=== PATIENT | male | born 1955 | race Asian ===

== ENCOUNTER 2017-03-03 21:59 | Emergency (ER) | payer MEDICAID ==
[~2017-03-03] VITALS: Ht 180.3 cm; Wt 102.1 kg
[2017-03-03 22:07] VITALS: BP_SYST 129
--- NOTE | 2017-03-03 22:12 | NUR ---
Patient to ER bed 8 to gown for evaluation. Side rails up. Report given to ALIVIA BISHOP.
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
--- NOTE | 2017-03-03 22:28 | NUR ---
ER at bedside examining patient.
[2017-03-03] MEDS ORDERED: IBUPROFEN 800 MG TABLET PO ONE (22:30)
[2017-03-03] MEDS ORDERED: SULFAMETHOXAZOLE/TRIMETHOPR DS 1 TABLET PO ONE (22:30)
--- NOTE | 2017-03-03 22:56 | NUR ---
Patient given written and verbal discharge instructions and verbalizes understanding. ER MD discussed with patient the results and treatment provided. Patient in stable condition. ID arm band removed. Rx of BACTRIM, MOTRIN given. Patient educated on pain management and to follow up with PMD. Pain Scale 0/10. Opportunity for questions provided and answered.
[2017-03-03 22:58] VITALS: BP_SYST 129
== END 2017-03-03 22:58 | disposition home or self-care (01) ==
LOC: SED 21:59
DX: S60.862A Insect bite (nonvenomous) of left wrist, initial encounter (principal); L03.114 Cellulitis of left upper limb; E11.9 Type 2 diabetes mellitus without complications; I10 Essential (primary) hypertension; W57.XXXA Bitten or stung by nonvenomous insect and other nonvenomous arthropods, initial encounter; Y93.89 Activity, other specified; Y92.89 Other specified places as the place of occurrence of the external cause; Y99.8 Other external cause status
CPT/HCPCS: 99283

== ENCOUNTER 2017-06-01 18:44 | Emergency (ER) | payer MEDICAID ==
[~2017-06-01] VITALS: Ht 180.3 cm; Wt 99.8 kg
[~2017-06-01 18:44] MED LIST: GLYB1TAB3 PO; SIMV20TA6 PO
[2017-06-01 18:46] VITALS: BP_SYST 140
--- NOTE | 2017-06-01 19:02 | NUR ---
Patient to ER bed 7 to gown for evaluation. Side rails up. Report given to Liya BUNCH.
--- NOTE | 2017-06-01 19:02 | NUR ---
ER MD Gordillo at bedside evaluating the patient
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
--- NOTE | 2017-06-01 19:30 | NUR ---
Umbrella Mender at bedside for blood draw. Patient identified x2
--- NOTE | 2017-06-01 19:51 | NUR ---
ER MD Russo at bedside evaluating the patient
[2017-06-01 19:59] LABS: BASOPHILS # (AUTO) 0.1 K/uL (0.0-0.2); BASOPHILS % (AUTO) 0.7 % (0.0-2.0); EOSINOPHILS # (AUTO) 0.5 K/uL (0.0-0.4); EOSINOPHILS % (AUTO) 5.5 % (0.0-4.0); HEMATOCRIT 41.5 % (36-54); HEMOGLOBIN 13.9 g/dL (14.0-18.0); LYMPHOCYTES # (AUTO) 2.3 K/uL (1.0-5.5); LYMPHOCYTES % (AUTO) 23.7 % (20.5-51.5); MEAN CORPUSCULAR HEMOGLOBIN 29 pg (27-31); MEAN CORPUSCULAR HGB CONC 34 % (32-36); MEAN CORPUSCULAR VOLUME 85 fL (79.0-98.0); MONOCYTES # (AUTO) 0.7 K/uL (0.0-1.0); MONOCYTES % (AUTO) 6.9 % (1.7-9.3); NEUTROPHILS % (AUTO) 63.2 % (40.0-70.0); PLATELET COUNT (AUTO) 229 K/uL (130-430); RED BLOOD CELL COUNT(AUTO) 4.86 MIL/uL (4.2-6.2); RED CELL DISTRIBUTION WIDTH 12.4 % (9.0-15.0); WHITE BLOOD COUNT (AUTO) 9.6 K/uL (4.8-10.8)
[2017-06-01 20:04] LABS: PROTHROMBIN TIME 10.9 SECS (9.5-12.5)
[2017-06-01 20:05] LABS: BILIRUBIN,URINE NEGATIVE (NEGATIVE); BLOOD, URINE NEGATIVE (NEGATIVE); CLARITY/URINE CLEAR (CLEAR); COLOR,URINE YELLOW (YELLOW); GLUCOSE,URINE 3+ (NEGATIVE); KETONES,URINE TRACE (NEGATIVE); LEUKOCYTE ESTERASE ,URINE NEGATIVE (NEGATIVE); NITRITE, URINE NEGATIVE (NEGATIVE); PH,URINE 5.5 (5.0-8.0); PROTEIN URINE NEGATIVE (NEGATIVE); UROBILINOGEN,URINE 0.2 (0.2-1.0)
[2017-06-01 20:08] LABS: CALCIUM 8.4 mg/dL (8.4-11.0); CREATININE 1.03 mg/dL (0.55-1.30); POTASSIUM 4.1 mmol/L (3.5-5.1)
[2017-06-01 20:13] LABS: ALBUMIN 3.3 g/dL (3.4-4.8); TOTAL BILIRUBIN 0.9 mg/dL (0.0-1.0)
--- NOTE | 2017-06-01 21:14 | NUR ---
ER MD Russo at bedside discussing test results and discharge plan.
[2017-06-01 21:32] VITALS: BP_SYST 132
--- NOTE | 2017-06-01 21:32 | NUR ---
Patient given written and verbal discharge instructions and verbalizes understanding. ER MD Russo discussed with patient the results and treatment provided. Patient in stable condition. ID arm band removed. Rx of flexeril & tramadol given. Patient educated on pain management and to follow up with PMD. Pain Scale 0/10. Opportunity for questions provided and answered.
== END 2017-06-01 21:32 | disposition home or self-care (01) ==
LOC: SED 18:44
DX: S20.219A Contusion of unspecified front wall of thorax, initial encounter (principal); M94.0 Chondrocostal junction syndrome [Tietze]; E11.9 Type 2 diabetes mellitus without complications; I10 Essential (primary) hypertension; V49.9XXA Car occupant (driver) (passenger) injured in unspecified traffic accident, initial encounter; Y93.89 Activity, other specified; Y92.488 Other paved roadways as the place of occurrence of the external cause
CPT/HCPCS: 36415; 71010; 80053; 81003; 83880; 84484; 85025; 85610-TC; 93005; 99285

== ENCOUNTER 2018-01-03 10:21 | Emergency (ER) | payer MEDICAID ==
[~2018-01-03] VITALS: Ht 175.3 cm; Wt 99.8 kg
[2018-01-03 10:21] VITALS: BP_SYST 161
[2018-01-03 10:47] LABS: BASOPHILS % (AUTO) 0.6 % (0.0-2.0); EOSINOPHILS # (AUTO) 0.5 K/uL (0.0-0.4); EOSINOPHILS % (AUTO) 6.1 % (0.0-4.0); HEMATOCRIT 45.7 % (36-54); LYMPHOCYTES # (AUTO) 1.6 K/uL (1.0-5.5); LYMPHOCYTES % (AUTO) 20.9 % (20.5-51.5); MEAN CORPUSCULAR HEMOGLOBIN 28 pg (27-31); MEAN CORPUSCULAR HGB CONC 33 % (32-36); MEAN CORPUSCULAR VOLUME 85 fL (79.0-98.0); MONOCYTES # (AUTO) 0.4 K/uL (0.0-1.0); MONOCYTES % (AUTO) 5.7 % (1.7-9.3); NEUTROPHILS # (AUTO) 5.1 K/uL (1.8-7.7); NEUTROPHILS % (AUTO) 66.7 % (40.0-70.0); PLATELET COUNT (AUTO) 181 K/uL (130-430); RED BLOOD CELL COUNT(AUTO) 5.38 MIL/uL (4.2-6.2); RED CELL DISTRIBUTION WIDTH 12.4 % (9.0-15.0); WHITE BLOOD COUNT (AUTO) 7.6 K/uL (4.8-10.8)
[2018-01-03 10:59] LABS: CALCIUM 9.2 mg/dL (8.4-11.0); CREATININE 0.93 mg/dL (0.55-1.30)
[2018-01-03 11:04] LABS: ALBUMIN 3.7 g/dL (3.4-4.8); TOTAL BILIRUBIN 1.4 mg/dL (0.0-1.0)
[2018-01-03] MEDS ORDERED: KETOROLAC TROMETHAMINE 30 MG VIAL IVP ONE (12:00)
[2018-01-03 12:50] VITALS: BP_SYST 140
== END 2018-01-03 12:50 | disposition home or self-care (01) ==
LOC: SED 10:21
DX: M94.0 Chondrocostal junction syndrome [Tietze] (principal); I10 Essential (primary) hypertension; E11.9 Type 2 diabetes mellitus without complications
CPT/HCPCS: 36415; 71045; 80053; 83880; 84484; 85025; 85379; 93005; 96374; 99285; J1885

== ENCOUNTER 2018-08-10 20:48 | Emergency (ER) | payer MEDICAID ==
[~2018-08-10] VITALS: Ht 180.3 cm; Wt 108.9 kg
[2018-08-10 21:20] VITALS: BP_SYST 152
[2018-08-10] MEDS ORDERED: LIDOCAINE 1% 10 MG/ML, 20 ML MDV INJ ONE (22:45)
[2018-08-10] MEDS ORDERED: cefTRIAXone 1 GM VIAL IM ONE (22:45)
[2018-08-10 22:55] VITALS: BP_SYST 144
== END 2018-08-10 22:55 | disposition home or self-care (01) ==
LOC: SED 20:48
DX: H66.91 Otitis media, unspecified, right ear (principal); E11.9 Type 2 diabetes mellitus without complications; I10 Essential (primary) hypertension
CPT/HCPCS: 96372; 99283; J0696; J2001

== ENCOUNTER 2019-06-07 17:05 | Emergency (ER) | payer MEDICAID ==
[~2019-06-07] VITALS: Ht 180.3 cm; Wt 103.0 kg
[2019-06-07 17:21] VITALS: BP_SYST 159
--- NOTE | 2019-06-07 19:30 | NUR ---
Patient to ER bed 2 to gown for evaluation. Side rails up. Report given to Danya BUNCH.
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
--- NOTE | 2019-06-07 19:55 | NUR ---
ER at bedside examining patient.
[2019-06-07] MEDS ORDERED: KETOROLAC TROMETHAMINE 60 MG/2 ML VIAL IM ONE (20:15)
[2019-06-07 20:58] LABS: BASOPHILS # (AUTO) 0.1 K/uL (0.0-0.2); BASOPHILS % (AUTO) 0.7 % (0.0-2.0); EOSINOPHILS # (AUTO) 0.4 K/uL (0.0-0.4); EOSINOPHILS % (AUTO) 3.9 % (0.0-4.0); HEMOGLOBIN 16.5 g/dL (14.0-18.0); LYMPHOCYTES # (AUTO) 2.4 K/uL (1.0-5.5); LYMPHOCYTES % (AUTO) 22.2 % (20.5-51.5); MEAN CORPUSCULAR HEMOGLOBIN 30 pg (27-31); MEAN CORPUSCULAR HGB CONC 34 % (32-36); MEAN CORPUSCULAR VOLUME 88 fL (79.0-98.0); MONOCYTES # (AUTO) 0.8 K/uL (0.0-1.0); MONOCYTES % (AUTO) 7.4 % (1.7-9.3); NEUTROPHILS # (AUTO) 7.1 K/uL (1.8-7.7); NEUTROPHILS % (AUTO) 65.8 % (40.0-70.0); RED BLOOD CELL COUNT(AUTO) 5.47 MIL/uL (4.2-6.2); RED CELL DISTRIBUTION WIDTH 14.1 % (9.0-15.0); WHITE BLOOD COUNT (AUTO) 10.8 K/uL (4.8-10.8)
[2019-06-07 21:04] LABS: CALCIUM 9.1 mg/dL (8.4-11.0); CREATININE 0.9 mg/dL (0.55-1.30); POTASSIUM 4.4 mmol/L (3.5-5.1)
[2019-06-07 21:11] LABS: ALBUMIN 3.7 g/dL (3.4-4.8); TOTAL BILIRUBIN 1.3 mg/dL (0.0-1.0)
[2019-06-07 21:14] LABS: PLATELET COUNT (AUTO) 400 K/uL (130-430)
[2019-06-07 21:40] VITALS: BP_SYST 140
--- NOTE | 2019-06-07 21:40 | NUR ---
Patient given written and verbal discharge instructions and verbalizes understanding. ER MD discussed with patient the results and treatment provided. Patient in stable condition. ID arm band removed. Rx of Naprosyn, Flexeril given. Patient educated on pain management and to follow up with PMD. Pain Scale 0/10. Opportunity for questions provided and answered. Medication side effect fact sheet provided.
== END 2019-06-07 21:40 | disposition home or self-care (01) ==
LOC: SED 17:05
DX: S33.5XXA Sprain of ligaments of lumbar spine, initial encounter (principal); S43.402A Unspecified sprain of left shoulder joint, initial encounter; R07.89 Other chest pain; E11.9 Type 2 diabetes mellitus without complications; I10 Essential (primary) hypertension; Z79.899 Other long term (current) drug therapy; V43.52XA Car driver injured in collision with other type car in traffic accident, initial encounter; Y93.89 Activity, other specified; Y92.411 Interstate highway as the place of occurrence of the external cause; Y99.8 Other external cause status
CPT/HCPCS: 36415; 71045; 72100; 73030; 80053; 82550; 83880; 84484; 85025; 93005; 96372; 99284; J1885

== ENCOUNTER 2023-12-22 13:06 | Emergency (ER) | payer OTHER, MEDICAID ==
[~2023-12-22] VITALS: Ht 180.3 cm; Wt 90.7 kg
[~2023-12-22 13:06] MED LIST changes: +SIMV-43 PO; -SIMV20TA6 PO
[2023-12-22] MEDS: KETOROLAC TROMETHAMINE 60 MG/2 ML VIAL IM ONE (14:18)
[2023-12-22 14:19] VITALS: BP_SYST 138; PULSE 88; RESP 18; TEMP 98.2; O2SAT 96
[2023-12-22] MEDS ORDERED: IBUP-1971 PO (15:20)
[2023-12-22] MEDS ORDERED: HYDR-3917 PO (15:20)
[2023-12-22 15:34] VITALS: BP_SYST 122; PULSE 78; RESP 16; TEMP 98.2; O2SAT 96
[2023-12-25] MEDS ORDERED: IBUP-1971 PO (08:29)
[2023-12-25] MEDS ORDERED: HYDR-3917 PO (08:29)
== END 2023-12-22 15:32 | disposition home or self-care (01) ==
LOC: SED 13:06
DX: S63.502A Unspecified sprain of left wrist, initial encounter (principal); S43.402A Unspecified sprain of left shoulder joint, initial encounter; S33.5XXA Sprain of ligaments of lumbar spine, initial encounter; I10 Essential (primary) hypertension; E11.9 Type 2 diabetes mellitus without complications; W03.XXXA Other fall on same level due to collision with another person, initial encounter; Y93.89 Activity, other specified; Y92.89 Other specified places as the place of occurrence of the external cause; Y99.8 Other external cause status
CPT/HCPCS: 99284; 72100; 73030; 73110; 73130; 96372; J1885